=== PATIENT | female | born 1985 | race Caucasian/White ===

== ENCOUNTER 2022-12-07 14:01 | Emergency (ER) | payer MEDICAID, SELFPAY ==
--- NOTE | ~2022-12-07 | CT_ITS ---
EXAMINATION: CT ABDOMEN AND PELVIS WITHOUT CONTRAST CLINICAL INFORMATION: Lower abdominal pain COMPARISON: None available. TECHNIQUE: Multidetector volumetric imaging was performed from the superior aspect of the liver through the pubic symphysis. Sagittal and coronal reformatted images were obtained on the technologist's workstation. This CT examination was performed using dose optimization techniques as appropriate, variously including the following: *Automated exposure control *Adjustment of mA and/or kV according to patient size (this includes techniques or standardized protocols for targeted exams where dose is matched to indication/reason for exam; i.e. extremities or head) *Use of iterative reconstruction technique DLP: 633 mGy-cm FINDINGS: LUNG BASES: Mild bilateral basilar markings could be small airways disease or subtle infiltrate or atelectasis LIVER, GALLBLADDER, AND BILIARY TREE: The liver is normal in size, shape, and attenuation. No focal hepatic lesion or biliary ductal dilatation is present. Status post cholecystectomy PANCREAS: Unremarkable. SPLEEN: Low-density lesion superior in the spleen. Measures 2.5 x 2.4 cm. ADRENAL GLANDS: Nodular left adrenal gland. This could be adenoma and is change. Measures 1.9 x 1.3 cm. KIDNEYS AND URETERS: The kidneys are normal in size, shape, and attenuation. No hydronephrosis, hydroureter, or calculi seen. No perinephric stranding. BLADDER: Unremarkable. GASTROINTESTINAL TRACT: The bowel pattern is felt to be nonobstructing. There is no free fluid. The appendix is within normal limits. ABDOMINAL WALL: No significant hernia is appreciated. LYMPH NODES: There is no bulky adenopathy here. Some mildly prominent mesenteric nodes. This would include anterior adjacent to the abdominal wall VASCULAR: Unremarkable. PELVIC VISCERA: Unremarkable. OSSEOUS STRUCTURES: Unremarkable. CT/CT abdomen pelvis wo IV con IMPRESSION: There is no acute finding here. The bowel pattern is felt to be nonobstructing. There is no free fluid. Note is made of a low-density lesion superior spleen. Ultrasound or MR is recommended. Left adrenal nodularity. Etiology indeterminate. Consider dedicated CT adrenal protocol to fully evaluate. Other findings are as noted above Fleischner guidelines were followed.
[2022-12-07 14:27] VITALS: BP 106/65; PULSE 78; RESP 18; TEMP 36.9; O2SAT 99; BMI 30.2
--- NOTE | 2022-12-07 14:33 | ED_ITS ---
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 She also reports noticing blood in her urine yesterday Patient sources some nausea without vomiting. Reports a previous cholecystectomy with no other abdominal surgical history. Patient denies any fevers, chills. She reports urinating frequently Denies any vaginal bleeding or rectal bleeding. Patient also states that she has been ?fatigued and without energy for about 1 year. ? She has not spoken to her doctor about this Related Data Allergies Allergy/AdvReac Type Severity Reaction Status Date / Time penicillin G Allergy Unknown Verified 03/22/19 00:00 Penicillins [PENICILLINS] Allergy Unknown UNKNOWN Unverified 03/26/20 15:59 Review of Systems Constitutional: Constitutional: Reports as per HPI, Denies chills, Denies fever(s) and Denies headache(s) ENT: Denies headache(s) Cardiovascular: Cardiovascular: Denies chest pain and Denies dyspnea Respiratory: Respiratory: Denies cough and Denies dyspnea Gastrointestinal: Gastrointestinal: Reports abdominal pain, Denies constipat ion, Reports nausea and Denies vomiting Genitourinary: Genitourinary: Reports hematuria and Reports dysuria Comments: urinating frequently Neurologic: Denies headache(s) and Denies focal weakness PMFSH Social History Social History Advance Directives: No Advance Directives Information Provided: No Physical Exam ED Vital Signs: Vital Signs - 24 hr 12/07/22 14:27 12/07/22 18:51 12/07/22 21:18 Temperature 98.4 F 97.9 F 98.0 F Pulse Rate 78 65 65 Respiratory Rate 18 18 17 Blood Pressure 106/65 118/79 118/69 Pulse Oximetry 99 98 97 Oxygen Delivery Method Room Air Room Air Room Air BMI result Body Mass Index 30.2 Const General: healthy appearing, comfortable, no acute distress, alert and awake Nutritional Appearance: well nourished Orientation/consciousness: patient oriented x3 HENMT Head: Yes normocephalic and Yes atraumatic Throat: Yes posterior oropharynx normal Eyes Eyelids: Yes eyelids normal Conjunctivae: conjunctivae normal Sclerae: sclerae normal Corneas: corneas normal Pupils: Equal, round and reactive pupils present EOM: EOMs intact bilaterally Neck Neck: Yes full ROM Resp Effort & Inspection: normal respiratory effort, able to speak in complete sentences and not labored Cardio Rate: regular rate Rhythm: regular rhythm GI Palpation (GI): Soft to palpation, not firm, Tenderness to palpation present (GI) in the LLQ and suprapubicly; with no rebound tenderness and no guarding Skin General skin exam: no rashes or lesions noted and elasticity normal Neuro General: patient oriented x3 Cranial nerves: Yes Equal, round and reactive pupils present and Yes Bilaterally intact EOM present Cognition (Neuro): normal cognition Extrem Other: Moving all extremities well without any obvious deformities Course Course Course Narrative: This is an RME: Additional HPI, ROS, PE not included below will be deferred to primary provider. [id number], hx of PCOS and cholescystectomy, presenting to the ER with complaints of abdominal pain, nausea, and constipation. VSS. Patient stable to return to the waiting room until treatment room becomes available. Plan: Labs and UA ordered. Reevaluation(s) Reevaluation #1: I discussed patient's workup with her including her urine that was negative without sign of infection or blood in the urine. Her CT scan did not show any pathology to explain her discomfort. She is quite comfortable currently. She is ready for discharge Time: 22:44 Medical Decision Making Medical Decision Making [facility] Narrative: 37 as female presents for evaluation of lower abdominal pain, she is tender in the left lower/suprapubic region. She reports blood in the urine. Concerning for UTI versus obstructive uropathy. Will start with a UA. She has a mild leukocytosis of 13.6k. No evidence of sepsis. I added on and TSH given her fatigue over the last year. Differential Diagnosis UTI Cystitis Obstructive uropathy Constipation Diverticulitis Colitis Lab Data 12/07/22 14:51 12/07/22 14:51 Labs: Lab Results 12/07/22 12/07/22 12/07/22 Range/Units 14:51 14:51 18:43 WBC 13.6 H (4.8-10.8) X10*3/uL RBC 4.82 (4.20-5.50) X10*6/uL Hgb 13.3 (12.0-16.0) g/dl Hct 41.1 (37.0-47.0) % MCV 85.3 (80.0-98.0) fL MCH 27.6 (27.0-33.0) pg MCHC 32.4 (31.0-35.0) g/dl RDW 14.5 (11.0-16.0) % Plt Count 289 (160-400) X10*3/uL MPV 10.8 (9.4-12.3) fL Absolute Nucleated RBC 0.000 (0.0-0.012) X10*3/uL Nucleated RBC % (auto) 0.0 (0.0-0.2) /100WBC Sodium 144 (135-145) mmol/L Potassium 4.6 (3.3-5.1) mmol/L Chloride 110 H (96-108) mmol/L Carbon Dioxide 25 (22-29) mmol/L Anion Gap 14 (12-20) BUN 18 H (9-16) mg/dL Creatinine 0.89 (0.5-1.4) mg/dL Estim Creat Clear Calc 94.9 Estimated GFR > 60 Random Glucose 118 H (60-115) mg/dL Calcium 9.6 (8.4-10.2) mg/dL Total Bilirubin 0.5 (0.0-1.0) mg/dL Direct Bilirubin 0.1 (0.0-0.5) mg/dL AST 18 (5-31) U/L ALT 25 (0-31) U/L Alkaline Phosphatase 86 (39-117) U/L Total Protein 7.5 (6.5-8.0) g/dL Albumin 4.2 (3.5-5.0) g/dL Lipase 15 (8-78) U/L TSH 0.88 (0.32-4.0) uIU/mL Beta HCG, Quant < 2 mIU/mL Urine Color Dark Yellow Urine Appearance Turbid Urine pH 5.5 (5.0-9.0) Ur Specific [employer] >= 1.030 H (1.005-1.025) Urine Protein Trace (Neg-Trace) mg/dL Urine Glucose (UA) Negative (Negative) mg/dL Urine Ketones Negative (Negative) mg/dL Urine Blood Negative (Negative) Urine Nitrite Negative (Negative) Ur Leukocyte Esterase Negative (Negative) Discharge Plan Discharge Clinical Impression: Abdominal pain Patient Disposition: Home, Self-Care Instructions: Abdominal Pain (ED) Additional Instructions: Your CT scan did not show any findings to explain your pain today It did show a left adrenal nodule and a small splenic nodule. Follow-up with your primary doctor, as you may require dedicated imaging of these areas, but these are not the cause of your pain today Your urine sample did not show any blood or infection You may use ibuprofen or Tylenol for your discomfort
[2022-12-07 15:09] LABS: Hematocrit 41.1 % (37.0-47.0); Hemoglobin 13.3 g/dl (12.0-16.0); Mean Corpuscular HGB Conc 32.4 g/dl (31.0-35.0); Mean Corpuscular Hemoglobin 27.6 pg (27.0-33.0); Mean Corpuscular Volume 85.3 fL (80.0-98.0); Mean Platelet Volume 10.8 fL (9.4-12.3); Platelet Count 289 X10*3/uL (160-400); Red Blood Count 4.82 X10*6/uL (4.20-5.50); Red Cell Distribution Width 14.5 % (11.0-16.0); White Blood Count 13.6 X10*3/uL (4.8-10.8)
[2022-12-07 15:20] LABS: Alanine Aminotransferase 25 U/L (0-31); Albumin Level 4.2 g/dL (3.5-5.0); Alkaline Phosphatase 86 U/L (39-117); Anion Gap 14 (12-20); Aspartate Amino Transferase 18 U/L (5-31); Bilirubin Direct 0.1 mg/dL (0.0-0.5); Bilirubin Total 0.5 mg/dL (0.0-1.0); Blood Urea Nitrogen 18 mg/dL (9-16); Calcium 9.6 mg/dL (8.4-10.2); Carbon Dioxide 25 mmol/L (22-29); Chloride 110 mmol/L (96-108); Creatinine Clr Calc Pharmacy 94.9; Estimated Glomerular Filt Rate > 60; Glucose Random 118 mg/dL (60-115); Lipase 15 U/L (8-78); Potassium 4.6 mmol/L (3.3-5.1); Sodium 144 mmol/L (135-145); Total Protein 7.5 g/dL (6.5-8.0)
[2022-12-07 18:22] LABS: TSH reflex Free T4 0.88 uIU/mL (0.32-4.0)
[2022-12-07 18:51] VITALS: BP 118/79; PULSE 65; RESP 18; TEMP 36.6; O2SAT 98
[2022-12-07 18:53] LABS: Appearance Urine Turbid; Color Urine Dark Yellow; Glucose Urine UA Negative (Negative); Leukocyte Esterase Urine Negative (Negative); Nitrite Urine Negative (Negative); PH 5.5 (5.0-9.0); Specific Gravity - Urine >= 1.030 (1.005-1.025); Urine Blood Negative (Negative); Urine Ketones Negative (Negative); Urine Protein Trace mg/dL (Neg-Trace)
[2022-12-07 20:15] LABS: HCG Quantitative < 2 mIU/mL
[2022-12-07 21:18] VITALS: BP 118/69; PULSE 65; RESP 17; TEMP 36.7; O2SAT 97
== END 2022-12-07 22:54 | disposition home or self-care (01) ==
PROVIDERS: Physician Assistant; Emergency Provider Student in an Organized Health Care Education/Training Program
DX: R10.30 Lower abdominal pain, unspecified (principal)
CPT/HCPCS: 36415; 74176; 80048; 80076; 81003; 83690; 84443; 84702; 85027; 99284